=== PATIENT | female | born 1990 ===

== ENCOUNTER 2021-07-07 20:57 | Inpatient (IN) | payer OTHER ==
[~2021-07-07] VITALS: Ht 167.6 cm; Wt 109.5 kg
--- NOTE | 2021-07-07 21:30 | NUR ---
PT C/O OF SOB, COUGHING UP BLOOD, FEVER/CHILL, N/V/D, BODYACHES, SORE THROAT X 4 DAYS AGO. ATTACHED TO CARD/SP02/BP MONITORS. PT HAVING TROUBLED BREATHING. BED IN LOW, RAILS ENGAGED, CALL LIGHT LAP. 88% ON RA
[2021-07-07] MEDS ORDERED: ACETAMINOPHEN 500 MG TABLET ONE (21:59)
[2021-07-07] MEDS ORDERED: ACETAMINOPHEN 500 MG TABLET PO ONE (22:00)
[2021-07-07] MEDS ORDERED: SODIUM CHLORIDE 0.9% 1,000ML IVBOLUS ONE (22:00)
[2021-07-07 22:20] LABS: BASOPHILS % (AUTO) 1 % (0-1); EOSINOPHILS % (AUTO) 0 % (1-7); LYMPHOCYTES % (AUTO) 20 % (22-44); MEAN CORPUSCULAR HEMOGLOBIN 28.8 pg (27.0-34.8); MEAN CORPUSCULAR HGB CONC 33.2 g/dL (32.4-35.8); MEAN PLATELET VOLUME 9.1 fL (7.4-10.4); MONOCYTES % (AUTO) 11 % (2-9); NEUTROPHILS % (AUTO) 68 % (42-75); PLATELET COUNT 323 x10^3/uL (130-400); RED BLOOD COUNT 4.22 x10^6/uL (3.82-5.3); RED CELL DISTRIBUTION WIDTH 15.7 % (9.6-15.2)
[2021-07-07 22:28] LABS: ALANINE AMINOTRANSFERASE 73 U/L (12-78); ALBUMIN 2.4 g/dL (3.4-5.0); ANION GAP 10 mmol/L (5-15); CALCIUM 8.3 mg/dL (8.5-10.1); CHLORIDE 96 mmol/L (98-107); CREATININE 0.75 mg/dL (0.55-1.02)
[2021-07-07 22:32] LABS: ALKALINE PHOSPHATASE 142 U/L (45-117); BILIRUBIN,TOTAL 0.8 mg/dL (0.2-1.0); TOTAL PROTEIN 7.5 g/dL (6.4-8.2); TROPONIN I < 0.015 ng/mL (0.000-0.045)
--- NOTE | 2021-07-07 22:54 | NUR ---
Patient is resting comfortably in bed. Bed in lowest, rails engaged, call light on lap. Vital Signs within normal limits. WCTM. NADN. WATCHING DATELINE ON TV NO ADDITIONAL QUESTIONS OR NEEDS AT THIS TIME.
--- NOTE | 2021-07-07 23:39 | NUR ---
Patient is resting comfortably in bed. Bed in lowest, rails engaged, call light on lap. Vital Signs within normal limits. WCTM. NADN. BREATHING EVEN AND UNLABORED A&OX4, SPEECH CLEAR. NSR ON MONITOR
--- NOTE | 2021-07-07 23:46 | NUR ---
PTSTATES SHE DOES NOT TAKE ANY MEDICATIONS AT HOME
--- NOTE | 2021-07-08 00:04 | NUR ---
gave report to yudy taylor
[2021-07-08] MEDS: ENOXAPARIN 100 MG/ML SQ SCH ×2 (01:00→13:00)
[2021-07-08] MEDS ORDERED: ACETAMINOPHEN 325 MG TABLET PO PRN (01:00)
[2021-07-08] MEDS ORDERED: PHARMACY MAY ADJ FOR RENAL FX MC PRN (01:00)
[2021-07-08] MEDS ORDERED: LABETALOL 5MG/ML, 20ML IVPush PRN (01:00)
[2021-07-08 01:08] VITALS: BP 109/71
[2021-07-08 01:30] VITALS: BP 109/71
[2021-07-08] MEDS: methylPREDNISolone SOD SUCC 40 MG/ML IVPush SCH ×4 (01:54→20:44)
[2021-07-08] MEDS: ONDANSETRON 2MG/ML, 2ML IVPush PRN ×3 (01:54→20:44)
[2021-07-08] MEDS: CEFTRIAXONE 1,000 MG in DEXTROSE 5% 50 ML IVPB SCH (02:02)
[2021-07-08] MEDS: ALBUTEROL-IPRATROPIUM MDI INH INH SCH ×4 (05:47→20:44)
[2021-07-08 07:07] LABS: BASOPHILS % (AUTO) 1 % (0-1); EOSINOPHILS % (AUTO) 0 % (1-7); LYMPHOCYTES % (AUTO) 21 % (22-44); MEAN CORPUSCULAR HEMOGLOBIN 28.6 pg (27.0-34.8); MEAN CORPUSCULAR HGB CONC 32.6 g/dL (32.4-35.8); MEAN PLATELET VOLUME 9.3 fL (7.4-10.4); MONOCYTES % (AUTO) 7 % (2-9); NEUTROPHILS % (AUTO) 72 % (42-75); PLATELET COUNT 308 x10^3/uL (130-400); RED BLOOD COUNT 3.97 x10^6/uL (3.82-5.3); RED CELL DISTRIBUTION WIDTH 16.1 % (9.6-15.2)
[2021-07-08 07:13] LABS: HCT (SEDRATE) 35.2 % (34.6-47.8)
[2021-07-08 07:32] VITALS: BP 105/71
[2021-07-08 07:45] LABS: FIBRINOGEN 582 mg/dL (200-340); INTERNATIONAL NORMALIZED RATIO 1.27 (0.93-1.1); PARTIAL THROMBOPLASTIN TIME 39 Seconds (25-31); PROTHROMBIN TIME 13.4 Seconds (9.6-11.5)
[2021-07-08 08:02] LABS: D-DIMER < 0.19 ug/mlFEU (0.00-0.52)
[2021-07-08] MEDS: ZINC SULFATE 220 MG CAPSULE PO SCH (09:15)
[2021-07-08] MEDS: ASCORBIC ACID 500 MG TABLET PO SCH ×2 (09:15→20:44)
[2021-07-08] MEDS: HYDROcodone/APAP 5/325 TABLET PO PRN ×2 (09:40→20:44)
[2021-07-08] MEDS: GUAIFENESIN/DM 200-20MG, 10ML UDC PO PRN ×2 (11:39→20:43)
[2021-07-08 14:14] VITALS: BP 119/80
[2021-07-08 20:01] VITALS: BP 103/70
[2021-07-09] MEDS: ENOXAPARIN 100 MG/ML SQ SCH ×2 (01:00→12:58)
[2021-07-09] MEDS: methylPREDNISolone SOD SUCC 40 MG/ML IVPush SCH ×4 (01:04→18:23)
[2021-07-09] MEDS: CEFTRIAXONE 1,000 MG in DEXTROSE 5% 50 ML IVPB SCH (01:04)
[2021-07-09 01:06] VITALS: BP 116/77
[2021-07-09 05:56] LABS: HCT (SEDRATE) 34.2 % (34.6-47.8)
[2021-07-09 05:59] LABS: BASOPHILS % (AUTO) 0 % (0-1); EOSINOPHILS % (AUTO) 0 % (1-7); LYMPHOCYTES % (AUTO) 25 % (22-44); MEAN CORPUSCULAR HEMOGLOBIN 28.7 pg (27.0-34.8); MEAN CORPUSCULAR HGB CONC 32.6 g/dL (32.4-35.8); MONOCYTES % (AUTO) 8 % (2-9); NEUTROPHILS % (AUTO) 67 % (42-75); PLATELET COUNT 410 x10^3/uL (130-400); RED BLOOD COUNT 3.85 x10^6/uL (3.82-5.3); RED CELL DISTRIBUTION WIDTH 16.1 % (9.6-15.2)
[2021-07-09] MEDS: ALBUTEROL-IPRATROPIUM MDI INH INH SCH ×4 (06:11→20:40)
[2021-07-09 08:38] VITALS: BP 127/82
[2021-07-09] MEDS: ZINC SULFATE 220 MG CAPSULE PO SCH (09:17)
[2021-07-09] MEDS: ASCORBIC ACID 500 MG TABLET PO SCH ×2 (09:17→20:40)
[2021-07-09] MEDS: HYDROcodone/APAP 5/325 TABLET PO PRN ×3 (09:17→17:17)
[2021-07-09] MEDS: ONDANSETRON 2MG/ML, 2ML IVPush PRN ×2 (09:17→17:25)
[2021-07-09] MEDS: GUAIFENESIN/DM 200-20MG, 10ML UDC PO PRN ×2 (09:18→17:17)
[2021-07-09] MEDS: PROCHLORPERAZINE 10MG TABLET PO PRN ×2 (12:56→20:40)
[2021-07-09] MEDS: AZITHROMYCIN 500 MG in SODIUM CHLORIDE 0.9% 250 ML IV SCH (12:58)
[2021-07-09 15:39] VITALS: BP 110/72
[2021-07-09 19:26] VITALS: BP 107/70
[2021-07-10 00:27] VITALS: BP 106/65
[2021-07-10] MEDS: ENOXAPARIN 100 MG/ML SQ SCH ×2 (01:00→13:00)
[2021-07-10] MEDS: CEFTRIAXONE 1,000 MG in DEXTROSE 5% 50 ML IVPB SCH (01:27)
[2021-07-10] MEDS: methylPREDNISolone SOD SUCC 40 MG/ML IVPush SCH ×4 (01:27→20:54)
[2021-07-10] MEDS: ALBUTEROL-IPRATROPIUM MDI INH INH SCH ×4 (06:00→20:54)
[2021-07-10 07:09] LABS: MEAN CORPUSCULAR HEMOGLOBIN 28.2 pg (27.0-34.8); MEAN CORPUSCULAR HGB CONC 32.3 g/dL (32.4-35.8); MEAN PLATELET VOLUME 8.9 fL (7.4-10.4); PLATELET COUNT 462 x10^3/uL (130-400); RED BLOOD COUNT 3.75 x10^6/uL (3.82-5.3); RED CELL DISTRIBUTION WIDTH 15.7 % (9.6-15.2)
[2021-07-10 07:27] LABS: C-REACTIVE PROTEIN, QUANT 1.9 mg/dL (0.02-0.49)
[2021-07-10 07:30] LABS: FIBRINOGEN 347 mg/dL (200-340); INTERNATIONAL NORMALIZED RATIO 1.39 (0.93-1.1); PARTIAL THROMBOPLASTIN TIME 30 Seconds (25-31); PROTHROMBIN TIME 14.6 Seconds (9.6-11.5)
[2021-07-10 07:34] LABS: D-DIMER < 0.19 ug/mlFEU (0.00-0.52)
[2021-07-10 08:04] LABS: BANDS%(MANUAL) 8 % (0-7); METAMYELOCYTES% (MANUAL) 1 % (0-1); MONOS% (MANUAL) 2 % (2-9); REACTIVE LYMPHS % (MANUAL) 2 % (0-0)
[2021-07-10 08:05] LABS: ALBUMIN 2.3 g/dL (3.4-5.0); ANION GAP 8 mmol/L (5-15); CALCIUM 8.6 mg/dL (8.5-10.1); CHLORIDE 105 mmol/L (98-107)
[2021-07-10 08:08] LABS: ALANINE AMINOTRANSFERASE 111 U/L (12-78); ALKALINE PHOSPHATASE 149 U/L (45-117); BILIRUBIN,TOTAL 0.5 mg/dL (0.2-1.0); CREATININE 0.43 mg/dL (0.55-1.02); TOTAL PROTEIN 6.7 g/dL (6.4-8.2)
[2021-07-10 08:16] LABS: LYMPHS% (MANUAL) 12 % (22-44); MYELOCYTES% (MANUAL) 1 % (0-0)
[2021-07-10 08:17] LABS: SEGS% (MANUAL) 74 % (42-75)
[2021-07-10 08:18] LABS: <PLATELET ESTIMATE> INCREASED; ANISOCYTOSIS 1+; HYPOCHROMIA 1+; POLYCHROMASIA 1+
[2021-07-10 08:55] VITALS: BP 114/74
[2021-07-10] MEDS ORDERED: REMDESIVIR 200 MG in SODIUM CHLORIDE 0.9% 100 ML IVPB ONE (09:00)
[2021-07-10 09:28] LABS: HCT (SEDRATE) 32.8 % (34.6-47.8)
[2021-07-10] MEDS: ASCORBIC ACID 500 MG TABLET PO SCH ×2 (09:38→20:54)
[2021-07-10] MEDS: ZINC SULFATE 220 MG CAPSULE PO SCH (09:38)
[2021-07-10] MEDS: PROCHLORPERAZINE 10MG TABLET PO PRN ×2 (09:51→20:54)
[2021-07-10] MEDS: GUAIFENESIN/DM 200-20MG, 10ML UDC PO PRN ×2 (09:51→20:54)
[2021-07-10] MEDS: HYDROcodone/APAP 5/325 TABLET PO PRN ×3 (09:51→22:02)
[2021-07-10] MEDS ORDERED: POTASSIUM CHLORIDE 80 MEQ in SODIUM CHLORIDE 0.9% 1,000 ML IV ONE (10:30)
[2021-07-10] MEDS ORDERED: POTASSIUM CHLORIDE 40 MEQ in SODIUM CHLORIDE 0.9% 500 ML IV ONE (10:30)
[2021-07-10 11:17] LABS: <PLT MORPHOLOGY> NORMAL PLT MORPH
[2021-07-10 12:47] VITALS: BP 106/70
[2021-07-10] MEDS: AZITHROMYCIN 500 MG in SODIUM CHLORIDE 0.9% 250 ML IV SCH (12:59)
[2021-07-10] MEDS ORDERED: ALBUTEROL SULFATE 2.5 MG/3 ML NPPB SCH (13:30)
[2021-07-10] MEDS ORDERED: LORazepam 2 MG/ML, 1ML IVPush PRN (13:30)
[2021-07-10 18:44] VITALS: BP 112/75
[2021-07-11 01:11] VITALS: BP 115/79
[2021-07-11] MEDS: CEFTRIAXONE 1,000 MG in DEXTROSE 5% 50 ML IVPB SCH (01:25)
[2021-07-11] MEDS: ENOXAPARIN 100 MG/ML SQ SCH ×2 (01:26→12:49)
[2021-07-11] MEDS: methylPREDNISolone SOD SUCC 40 MG/ML IVPush SCH ×4 (03:32→21:08)
[2021-07-11] MEDS: ALBUTEROL-IPRATROPIUM MDI INH INH SCH ×4 (06:06→21:10)
[2021-07-11 06:13] LABS: HCT (SEDRATE) 31.3 % (34.6-47.8)
[2021-07-11 06:14] LABS: MEAN CORPUSCULAR HEMOGLOBIN 28.3 pg (27.0-34.8); MEAN CORPUSCULAR HGB CONC 31.9 g/dL (32.4-35.8); MEAN PLATELET VOLUME 8.6 fL (7.4-10.4); PLATELET COUNT 486 x10^3/uL (130-400); RED BLOOD COUNT 3.59 x10^6/uL (3.82-5.3); RED CELL DISTRIBUTION WIDTH 15.9 % (9.6-15.2)
[2021-07-11 06:24] LABS: ALBUMIN 2.2 g/dL (3.4-5.0); CHLORIDE 110 mmol/L (98-107)
[2021-07-11 06:33] LABS: ALANINE AMINOTRANSFERASE 134 U/L (12-78); ALKALINE PHOSPHATASE 151 U/L (45-117); ANION GAP 7 mmol/L (5-15); BILIRUBIN,TOTAL 0.6 mg/dL (0.2-1.0); C-REACTIVE PROTEIN, QUANT 0.71 mg/dL (0.02-0.49); CALCIUM 8.3 mg/dL (8.5-10.1); CREATININE 0.39 mg/dL (0.55-1.02); TOTAL PROTEIN 6.1 g/dL (6.4-8.2)
[2021-07-11 06:47] LABS: <PLATELET ESTIMATE> INCREASED; <PLT MORPHOLOGY> NORMAL PLT MORPH; ANISOCYTOSIS 1+; BAND#(MANUAL) 0.34 x10^3/uL; BANDS%(MANUAL) 3 % (0-7); HYPOCHROMIA 1+; LYMPH#(MANUAL) 1.25 x10^3/uL (1-3.4); LYMPHS% (MANUAL) 11 % (22-44); METAMYELOCYTES# (MANUAL) 0.11 x10^3/uL (0-0); METAMYELOCYTES% (MANUAL) 1 % (0-1); MONOS#(MANUAL) 1.03 x10^3/uL (0.3-2.7); MONOS% (MANUAL) 9 % (2-9); POLYCHROMASIA 1+; SEG#(MANUAL) 8.66 x10^3/uL (1.8-6.8); SEGS% (MANUAL) 76 % (42-75)
[2021-07-11] MEDS: ASCORBIC ACID 500 MG TABLET PO SCH ×2 (08:44→21:09)
[2021-07-11] MEDS: GUAIFENESIN/COD200MG-20MG/10ML LIQUID PO SCH ×5 (08:44→23:30)
[2021-07-11] MEDS: ZINC SULFATE 220 MG CAPSULE PO SCH (08:44)
[2021-07-11] MEDS: GUAIFENESIN 200 MG TABLET PO SCH ×4 (08:45→21:09)
[2021-07-11] MEDS: PROCHLORPERAZINE 10MG TABLET PO PRN (09:03)
[2021-07-11] MEDS: HYDROcodone/APAP 5/325 TABLET PO PRN ×3 (09:05→21:09)
[2021-07-11 09:35] VITALS: BP 118/80
[2021-07-11] MEDS: REMDESIVIR 100 MG in SODIUM CHLORIDE 0.9% 100 ML IVPB SCH (10:50)
[2021-07-11] MEDS: AZITHROMYCIN 500 MG in SODIUM CHLORIDE 0.9% 250 ML IV SCH (12:49)
[2021-07-11] MEDS ORDERED: POTASSIUM CHLORIDE 40 MEQ in SODIUM CHLORIDE 0.9% 500 ML IV ONE (15:30)
[2021-07-11 15:38] VITALS: BP 115/73
[2021-07-11] MEDS: ONDANSETRON 2MG/ML, 2ML IVPush PRN (17:56)
[2021-07-11 19:02] VITALS: BP 104/67
[2021-07-12 00:15] VITALS: BP 114/72
[2021-07-12] MEDS: ENOXAPARIN 100 MG/ML SQ SCH ×2 (01:25→12:20)
[2021-07-12] MEDS: CEFTRIAXONE 1,000 MG in DEXTROSE 5% 50 ML IVPB SCH (01:25)
[2021-07-12] MEDS: methylPREDNISolone SOD SUCC 40 MG/ML IVPush SCH ×4 (02:45→20:34)
[2021-07-12] MEDS: GUAIFENESIN/COD200MG-20MG/10ML LIQUID PO SCH ×6 (02:45→23:41)
[2021-07-12] MEDS: GUAIFENESIN 200 MG TABLET PO SCH ×4 (06:00→20:34)
[2021-07-12] MEDS: ALBUTEROL-IPRATROPIUM MDI INH INH SCH ×4 (06:00→20:35)
[2021-07-12 06:10] LABS: BASOPHILS % (AUTO) 0 % (0-1); EOSINOPHILS % (AUTO) 0 % (1-7); LYMPHOCYTES % (AUTO) 18 % (22-44); MEAN CORPUSCULAR HGB CONC 32.9 g/dL (32.4-35.8); MEAN PLATELET VOLUME 8.7 fL (7.4-10.4); MONOCYTES % (AUTO) 4 % (2-9); NEUTROPHILS % (AUTO) 77 % (42-75); PLATELET COUNT 471 x10^3/uL (130-400); RED BLOOD COUNT 3.37 x10^6/uL (3.82-5.3)
[2021-07-12 06:21] LABS: ANION GAP 9 mmol/L (5-15); CALCIUM 8.4 mg/dL (8.5-10.1); CHLORIDE 109 mmol/L (98-107); FIBRINOGEN 219 mg/dL (200-340); INTERNATIONAL NORMALIZED RATIO 1.32 (0.93-1.1); PARTIAL THROMBOPLASTIN TIME 27 Seconds (25-31); PROTHROMBIN TIME 13.9 Seconds (9.6-11.5)
[2021-07-12 06:27] LABS: D-DIMER < 0.19 ug/mlFEU (0.00-0.52)
[2021-07-12 06:28] LABS: ALANINE AMINOTRANSFERASE 155 U/L (12-78); ALBUMIN 2.2 g/dL (3.4-5.0); ALKALINE PHOSPHATASE 138 U/L (45-117); BILIRUBIN,TOTAL 0.6 mg/dL (0.2-1.0); C-REACTIVE PROTEIN, QUANT 0.37 mg/dL (0.02-0.49); CREATININE 0.41 mg/dL (0.55-1.02)
[2021-07-12 07:48] LABS: HCT (SEDRATE) 29.7 % (34.6-47.8)
[2021-07-12] MEDS: ASCORBIC ACID 500 MG TABLET PO SCH ×2 (08:31→20:33)
[2021-07-12] MEDS: REMDESIVIR 100 MG in SODIUM CHLORIDE 0.9% 100 ML IVPB SCH (08:31)
[2021-07-12] MEDS: ZINC SULFATE 220 MG CAPSULE PO SCH (08:31)
[2021-07-12 08:46] VITALS: BP 125/83
[2021-07-12] MEDS: ONDANSETRON 2MG/ML, 2ML IVPush PRN (09:49)
[2021-07-12] MEDS: HYDROcodone/APAP 5/325 TABLET PO PRN ×3 (10:15→23:41)
[2021-07-12 12:15] VITALS: BP 114/78
[2021-07-12] MEDS: AZITHROMYCIN 500 MG in SODIUM CHLORIDE 0.9% 250 ML IV SCH (12:21)
[2021-07-12] MEDS: PROCHLORPERAZINE 10MG TABLET PO PRN ×2 (15:25→23:51)
[2021-07-12 20:17] VITALS: BP 121/78
[2021-07-13] MEDS: ENOXAPARIN 100 MG/ML SQ SCH (01:00)
[2021-07-13] MEDS: CEFTRIAXONE 1,000 MG in DEXTROSE 5% 50 ML IVPB SCH (01:35)
[2021-07-13] MEDS: methylPREDNISolone SOD SUCC 40 MG/ML IVPush SCH ×2 (01:37→10:03)
[2021-07-13 01:42] VITALS: BP 117/72
[2021-07-13] MEDS: GUAIFENESIN/COD200MG-20MG/10ML LIQUID PO SCH ×3 (03:49→11:30)
[2021-07-13 05:47] LABS: BASOPHILS % (AUTO) 1 % (0-1); EOSINOPHILS % (AUTO) 0 % (1-7); LYMPHOCYTES % (AUTO) 18 % (22-44); MEAN CORPUSCULAR HEMOGLOBIN 28.2 pg (27.0-34.8); MEAN PLATELET VOLUME 8.8 fL (7.4-10.4); MONOCYTES % (AUTO) 4 % (2-9); NEUTROPHILS % (AUTO) 78 % (42-75); PLATELET COUNT 559 x10^3/uL (130-400); RED BLOOD COUNT 3.61 x10^6/uL (3.82-5.3); RED CELL DISTRIBUTION WIDTH 16.1 % (9.6-15.2)
[2021-07-13 05:56] LABS: HCT (SEDRATE) 31.5 % (34.6-47.8)
[2021-07-13 05:58] LABS: ALBUMIN 0.3 g/dL (3.4-5.0); ANION GAP 18 mmol/L (5-15); CHLORIDE 105 mmol/L (98-107)
[2021-07-13 06:05] LABS: ALANINE AMINOTRANSFERASE 185 U/L (12-78); ALKALINE PHOSPHATASE 139 U/L (45-117); BILIRUBIN,TOTAL 0.7 mg/dL (0.2-1.0); C-REACTIVE PROTEIN, QUANT 0.27 mg/dL (0.02-0.49); CREATININE 0.51 mg/dL (0.55-1.02); TOTAL PROTEIN 6.2 g/dL (6.4-8.2)
[2021-07-13] MEDS: HYDROcodone/APAP 5/325 TABLET PO PRN (06:38)
[2021-07-13] MEDS: ALBUTEROL-IPRATROPIUM MDI INH INH SCH ×2 (06:38→10:03)
[2021-07-13] MEDS: GUAIFENESIN 200 MG TABLET PO SCH (06:38)
[2021-07-13 06:45] LABS: CALCIUM 8.4 mg/dL (8.5-10.1)
[2021-07-13 06:56] LABS: ANISOCYTOSIS 1+; HYPOCHROMIA 1+; OVALOCYTES 1+
[2021-07-13 06:57] LABS: <PLATELET ESTIMATE> INCREASED; <PLT MORPHOLOGY> NORMAL PLT MORPH
[2021-07-13 07:19] VITALS: BP 116/81
[2021-07-13] MEDS: ZINC SULFATE 220 MG CAPSULE PO SCH (10:02)
[2021-07-13] MEDS: ASCORBIC ACID 500 MG TABLET PO SCH (10:03)
[2021-07-13] MEDS: REMDESIVIR 100 MG in SODIUM CHLORIDE 0.9% 100 ML IVPB SCH (10:03)
[2021-07-13] MEDS ORDERED: DEXA4TAB66 PO (12:27)
[2021-07-13 12:50] VITALS: BP 122/85
== END 2021-07-13 14:11 | disposition home or self-care (01) | DRG 177 ==
LOC: ED 21:15 → EDIP 23:32 → 3N 07-08 00:55
PROVIDERS: ADMIT Student in an Organized Health Care Education/Training Program; ATTEND Hospitalist
PROC: XW033E5 Introduction of Remdesivir Anti-infective into Peripheral Vein, Percutaneous Approach, New Technology Group 5 (ICD-10-PCS; principal; 2021-07-10)
DX: U07.1 COVID-19 (principal); J12.82 Pneumonia due to coronavirus disease 2019; J96.01 Acute respiratory failure with hypoxia; E66.01 Morbid (severe) obesity due to excess calories; Z79.899 Other long term (current) drug therapy
CPT/HCPCS: 36415; 84145; 99285; Q0164; 71045; 80053; 82728; 83605; 83615; 84484; 85025; 85379; 85384; 85610; 85651; 85730; 86140; 87040; 93005; G0378; J0456; J0696; J1650; J2405; J3480; U0005; J2920; J7030; J7040; J7050; U0003